=== PATIENT | female | born 1950 | race Caucasian/White ===

== ENCOUNTER 2018-06-06 21:27 | Inpatient (IN) | payer OTHER ==
[2018-06-06 22:51] LABS: ALT/SGPT 72 U/L (12-78); AST/SGOT 51 U/L (15-37); Albumin 4.2 g/dL (3.4-5.0); Alkaline Phosphatase 78 U/L (45-117); BUN Blood Urea Nitrogen 20 mg/dL (7-18); Bicarbonate 27 mmol/L (21-32); Bilirubin Direct 0.1 mg/dL (0-0.2); Bilirubin Total 0.7 mg/dL (0.2-1.0); CKMB Creatine Kinase MB < 1.0 ng/mL (0.3-3.6); Creatine Phosphokinase 78 U/L (26-192); Glucose Level 138 mg/dL (74-106); Lipase 170 U/L (73-393); NT PRO-BNP 28 pg/mL (<125); Potassium 3.5 mmol/L (3.5-5.1); Protein, Total 7.2 g/dL (6.4-8.2); Sodium Level 141 mmol/L (136-145)
[2018-06-06] MEDS ORDERED: METRONIDAZOLE 500mg IVPB 500 MG/100 ML BAG IV ONE (22:53)
[2018-06-06] MEDS ORDERED: CIPROFLOXACIN 400mg IV 400 MG/200 ML BAG IV ONE (22:53)
[2018-06-06] MEDS ORDERED: NA CHLORIDE 0.9% 1,000 ML ONE (22:53)
[2018-06-06 22:54] LABS: Absolute Lymphocytes (CBC) 3.1 K/uL (0.7-4.9); Absolute Monocytes 0.8 K/uL (0.1-1.3); Absolute Neutrophil 8.8 K/uL (1.8-8.0); Basophils % 0.8 % (0-1.3); Eosinophils % 1.1 % (0-4.4); Hematocrit 39.7 % (36.0-45.0); Lymphocytes % 24.3 % (15.3-44.8); MCH 30.8 pg (27.0-35.0); MCV 89.6 fL (80-100); MPV 10.2 fL (7.6-11.3); RBC Red Blood Cell Count 4.43 M/uL (3.86-4.86)
--- NOTE | 2018-06-06 23:09 | EDPHYS ---
Physician Documentation [facility] Name: Joie Genao Age: 67 yrs Sex: Female : 1950 Arrival Date: 06/06/2018 Time: 21:28 Bed 18 Private MD: Clare Rivas ED Physician Drake Scott HPI: 06/06 23:02 This 67 yrs old Female presents to ER via EMS with complaints of Rectal sophy Bleeding. 23:02 The patient presents to the emergency department with bleeding from the rectum/anus, sophy that is mild. Onset: The symptoms/episode began/occurred today. Context: the patient has no known special context relating to the rectal area complaint(s). Modifying factors: The symptoms are alleviated by. Associate signs and symptoms: The patient has no apparent associated signs or symptoms. The patient has not experienced similar symptoms in the past. Historical: - Allergies: 21:34 Iodine; fc 21:34 Codeine; fc - Home Meds: 21:34 amlodipine 10 mg tab 1 tab once daily [Active]; hydrochlorothiazide 25 mg Oral tab 1 fc tab once daily [Active]; valacyclovir 500 mg Oral tab as needed [Active]; simvastatin 40 mg Oral tab 1 tab once daily [Active]; omeprazole 20 mg Oral cpDR 2 caps once daily [Active]; multivitamin oral tab daily [Active]; vitamin E 200 unit Oral cap daily [Active]; Vitamin C 500 mg Oral tab daily [Active]; calcium carbonate 500 mg calcium (1,250 mg) Oral chew daily [Active]; aspirin 81 mg Oral TbEC 1 tab once daily [Active]; folic acid 400 mcg Oral tab 1 tab once daily [Active]; niacin 250 mg Oral cpER daily [Active]; - PMHx: 21:34 Hypertension; High Cholesterol; fc - PSHx: 21:34 Cholecystectomy; Hysterectomy; Knee surgery; Lumpectomy; fc - Immunization history:: Last tetanus immunization: unknown. - Social history:: Smoking status: Patient/guardian denies using tobacco. - Ebola Screening: : Patient negative for fever greater than or equal to 101.5 degrees Fahrenheit, and additional compatible Ebola Virus Disease symptoms Patient negative for fever greater than or equal to 101.5 degrees Fahrenheit, and additional compatible Ebola Virus Disease symptoms Patient denies exposure to infectious person Patient denies travel to an Ebola-affected area in the 21 days before illness onset. - Family history:: not pertinent. ROS: 23:02 Constitutional: Negative for fever, chills, and weight loss, Eyes: Negative for injury, sophy pain, redness, and discharge, ENT: Negative for injury, pain, and discharge, Neck: Negative for injury, pain, and swelling, Cardiovascular: Negative for chest pain, palpitations, and edema, Respiratory: Negative for shortness of breath, cough, wheezing, and pleuritic chest pain, Back: Negative for injury and pain, : Negative for injury, bleeding, discharge, and swelling, MS/Extremity: Negative for injury and deformity, Skin: Negative for injury, rash, and discoloration, Neuro: Negative for headache, weakness, numbness, tingling, and seizure, Psych: Negative for depression, anxiety, suicide ideation, homicidal ideation, and hallucinations, Allergy/Immunology: Negative for hives, rash, and allergies, Endocrine: Negative for neck swelling, polydipsia, polyuria, polyphagia, and marked weight changes, Hematologic/Lymphatic: Negative for swollen nodes, abnormal bleeding, and unusual bruising. 23:02 Abdomen/GI: Positive for rectal bleeding. Exam: 23:02 Constitutional: This is a well developed, well nourished patient who is awake, alert, sophy and in no acute distress. Head/Face: Normocephalic, atraumatic. Eyes: Pupils equal round and reactive to light, extra-ocular motions intact. Lids and lashes normal. Conjunctiva and sclera are non-icteric and not injected. Cornea within normal limits. Periorbital areas with no swelling, redness, or edema. ENT: Nares patent. No nasal discharge, no septal abnormalities noted. Tympanic membranes are normal and external auditory canals are clear. Oropharynx with no redness, swelling, or masses, exudates, or evidence of obstruction, uvula midline. Mucous membranes moist. Neck: Trachea midline, no thyromegaly or masses palpated, and no cervical lymphadenopathy. Supple, full range of motion without nuchal rigidity, or vertebral point tenderness. No Meningismus. Chest/axilla: Normal chest wall appearance and motion. Nontender with no deformity. No lesions are appreciated. Cardiovascular: Regular rate and rhythm with a normal S1 and S2. No gallops, murmurs, or rubs. Normal PMI, no JVD. No pulse deficits. Respiratory: Lungs have equal breath sounds bilaterally, clear to auscultation and percussion. No rales, rhonchi or wheezes noted. No increased work of breathing, no retractions or nasal flaring. Back: No spinal tenderness. No costovertebral tenderness. Full range of motion. Female : Normal external genitalia. Skin: Warm, dry with normal turgor. Normal color with no rashes, no lesions, and no evidence of cellulitis. MS/ Extremity: Pulses equal, no cyanosis. Neurovascular intact. Full, normal range of motion. Neuro: Awake and alert, GCS 15, oriented to person, place, time, and situation. Cranial nerves II-XII grossly intact. Motor strength 5/5 in all extremities. Sensory grossly intact. Cerebellar exam normal. Normal gait. Psych: Awake, alert, with orientation to person, place and time. Behavior, mood, and affect are within normal limits. 23:02 Abdomen/GI: Inspection: abdomen appears normal, Bowel sounds: normal, Palpation: abdomen is soft and non-tender, Rectal exam: gross blood, clots. Liver: no appreciated palpable abnormalities, Hernia: not appreciated. Vital Signs: 21:35 BP 121 / 74; Pulse 79; Resp 18; Temp 98.5(O); Pulse Ox 100% on R/A; Weight 76.2 kg (R); Height 5 ft. 3 in. (160.02 cm) (R); Pain 0/10; 23:11 BP 114 / 74; Pulse 85; Resp 17 S; Pulse Ox 97% on R/A; jd3 06/07 00:30 BP 117 / 50; Pulse 86; Resp 16 S; Pulse Ox 98% on R/A; jd3 06/06 21:35 Body Mass Index 29.76 (76.20 kg, 160.02 cm) fc MDM: 06/06 21:49 Patient medically screened. [facility] 23:02 Data reviewed: vital signs, nurses notes, lab test result(s), EKG, radiologic studies, [facility] CT scan, plain films. 06/06 21:51 Order name: Basic Metabolic Panel; Complete Time: 23:02 [facility] 06/06 21:51 Order name: CBC with Diff; Complete Time: 23:02 [facility] 06/06 21:51 Order name: Ckmb; Complete Time: 23:02 [facility] 06/06 21:51 Order name: CPK; Complete Time: 23:02 [facility] 06/06 21:51 Order name: LFT's; Complete Time: 23:02 [facility] 06/06 21:51 Order name: Magnesium; Complete Time: 23:02 [facility] 06/06 21:51 Order name: NT PRO-BNP; Complete Time: 23:02 [facility] 06/06 21:51 Order name: PT-INR; Complete Time: 23:54 [facility] 06/06 21:51 Order name: Ptt, Activated; Complete Time: 23:54 [facility] 06/06 21:51 Order name: Troponin (emerg Dept Use Only); Complete Time: 23:02 [facility] 06/06 21:51 Order name: Lipase; Complete Time: 23:02 [facility] 06/06 21:51 Order name: Type And Screen; Complete Time: 23:54 [facility] 06/06 21:51 Order name: Urine Culture [facility] 06/06 23:43 Order name: ABO/RH no charge; Complete Time: 23:54 EDMS 06/06 21:51 Order name: XRAY Chest (1 view) [facility] 06/06 21:51 Order name: EKG; Complete Time: 21:52 [facility] 06/06 21:51 Order name: Cardiac monitoring; Complete Time: 22:24 [facility] 06/06 21:51 Order name: EKG - Nurse/Tech; Complete Time: 22:24 [facility] 06/06 21:51 Order name: IV Saline Lock; Complete Time: 22:42 [facility] 06/06 21:51 Order name: Labs collected and sent; Complete Time: 22:42 [facility] 06/06 21:51 Order name: O2 Per Protocol; Complete Time: 21:52 [facility] 06/06 21:51 Order name: O2 Sat Monitoring; Complete Time: 21:52 [facility] 06/06 21:51 Order name: CT Abd/Pelvis - Without Cont [facility] 06/06 23:12 Order name: CONS Physician Consult EDMS Administered Medications: 23:10 Drug: NS 0.9% 500 ml Route: IV; Rate: bolus; Site: left forearm; jd3 06/07 00:29 Follow up: Response: No adverse reaction; IV Status: Completed infusion; IV Intake: jd3 500ml 06/06 23:10 Drug: Flagyl 500 mg Volume: 100 ml; Route: IVPB; Rate: 200 ml/hr; Infused Over: 30 jd3 mins; Site: left forearm; 06/07 00:29 Follow up: Response: No adverse reaction; IV Status: Completed infusion jd3 00:29 Drug: NS 0.9% 1000 ml Route: IV; Rate: 125 ml/hr; Site: left forearm; jd3 00:30 Follow up: IV Status: Infusion continued upon admission jd3 00:29 Drug: Cipro 400 mg Volume: 200 ml; Route: IVPB; Infused Over: 60 mins; Site: left jd3 antecubital; 00:30 Follow up: IV Status: Infusion continued upon admission jd3 Disposition: 06/06/18 23:09 Hospitalization ordered by Emanuel Phelps for Observation. Preliminary diagnosis is Gastrointestinal hemorrhage, unspecified - lower, sp biopsy. - Bed requested for Telemetry/MedSurg (observation). - Status is Observation. jd3 - Condition is Stable. - Problem is new. - Symptoms are unchanged. UTI on Admission? No Signatures: Dispatcher [employer] EDMD Drake Scott MD MD cha Chretien, Felicia, RN KIAN Janice Marsh RN RN Koko Vargas RN RN jd3 Corrections: (The following items were deleted from the chart) 06/06 23:22 23:09 Hospitalization Ordered by Emanuel Phelps MD for Observation. Preliminary cg diagnosis is Gastrointestinal hemorrhage, unspecified - lower, sp biopsy. Bed requested for Telemetry/MedSurg (observation). Status is Observation. Condition is Stable. Problem is new. Symptoms are unchanged. UTI on Admission? No. sophy 06/07 00:50 06/06 23:22 06/06/2018 23:09 Hospitalization Ordered by Emanuel Phelps MD for jd3 Observation. Preliminary diagnosis is Gastrointestinal hemorrhage, unspecified - lower, sp biopsy. Bed requested for Telemetry/MedSurg (observation). Status is Observation. Condition is Stable. Problem is new. Symptoms are unchanged. UTI on Admission? No. cg
--- NOTE | 2018-06-06 23:09 | ER ---
Nurse's Notes [facility] Name: Joie Genao Age: 67 yrs Sex: Female : 1950 Arrival Date: 06/06/2018 Time: 21:28 Bed 18 Private MD: Clare Rivas Diagnosis: Gastrointestinal hemorrhage, unspecified-lower, sp biopsy Presentation: 06/06 21:29 Presenting complaint: Patient states: that she had colonoscopy with 6 polyps removed fc last Thursday by Dr Cortes. Today she has had 4 BM's today with dark red blood and clots. EMS bp 129/78, heart rate of 86. Transition of care: patient was not received from another setting of care. Onset of symptoms was June 06, 2018. Risk Assessment: Do you want to hurt yourself or someone else? Patient reports no desire to harm self or others. Initial Sepsis Screen: Does the patient meet any 2 criteria? No. Patient's initial sepsis screen is negative. Does the patient have a suspected source of infection? No. Patient's initial sepsis screen is negative. Care prior to arrival: None. 21:29 Method Of Arrival: EMS: [facility] 21:29 Acuity: MARK 3 fc Historical: - Allergies: 21:34 Iodine; fc 21:34 Codeine; fc - Home Meds: 21:34 amlodipine 10 mg tab 1 tab once daily [Active]; hydrochlorothiazide 25 mg Oral tab 1 fc tab once daily [Active]; valacyclovir 500 mg Oral tab as needed [Active]; simvastatin 40 mg Oral tab 1 tab once daily [Active]; omeprazole 20 mg Oral cpDR 2 caps once daily [Active]; multivitamin oral tab daily [Active]; vitamin E 200 unit Oral cap daily [Active]; Vitamin C 500 mg Oral tab daily [Active]; calcium carbonate 500 mg calcium (1,250 mg) Oral chew daily [Active]; aspirin 81 mg Oral TbEC 1 tab once daily [Active]; folic acid 400 mcg Oral tab 1 tab once daily [Active]; niacin 250 mg Oral cpER daily [Active]; - PMHx: 21:34 Hypertension; High Cholesterol; fc - PSHx: 21:34 Cholecystectomy; Hysterectomy; Knee surgery; Lumpectomy; fc - Immunization history:: Last tetanus immunization: unknown. - Social history:: Smoking status: Patient/guardian denies using tobacco. - Ebola Screening: : Patient negative for fever greater than or equal to 101.5 degrees Fahrenheit, and additional compatible Ebola Virus Disease symptoms Patient negative for fever greater than or equal to 101.5 degrees Fahrenheit, and additional compatible Ebola Virus Disease symptoms Patient denies exposure to infectious person Patient denies travel to an Ebola-affected area in the 21 days before illness onset. - Family history:: not pertinent. Screenin:31 Abuse screen: Denies threats or abuse. Nutritional screening: No deficits noted. jd3 Tuberculosis screening: No symptoms or risk factors identified. Fall Risk Ambulatory Aid- None/Bed Rest/Nurse Assist (0 pts). Gait- Normal/Bed Rest/Wheelchair (0 pts) Mental Status- Oriented to own ability (0 pts). Total Bullock Fall Scale indicates No Risk (0-24 pts). Assessment: 21:28 General: Appears uncomfortable, Behavior is calm, cooperative, appropriate for age. jd3 Pain: Denies pain. Neuro: Level of Consciousness is awake, alert, obeys commands, Oriented to person, place, time, situation, Reports dizziness. Cardiovascular: Heart tones S1 S2 present Capillary refill < 3 seconds Patient's skin is warm and dry. Respiratory: Airway is patent Respiratory effort is even, unlabored, Respiratory pattern is regular, symmetrical, Breath sounds are clear bilaterally. GI: Abdomen is round Bowel sounds present X 4 quads. Abd is soft and non tender X 4 quads. Reports bloody stool. : No signs and/or symptoms were reported regarding the genitourinary system. EENT: No signs and/or symptoms were reported regarding the EENT system. Derm: Skin is intact, Skin is dry, Skin is normal, Skin temperature is warm. Musculoskeletal: Circulation, motion, and sensation intact. Range of motion: intact in all extremities. 23:12 Reassessment: Patient appears in no apparent distress at this time. Patient and/or jd3 family updated on plan of care and expected duration. Pain level reassessed. Patient is alert, oriented x 3, equal unlabored respirations, skin warm/dry/pink. 06/07 00:43 Reassessment: Patient appears in no apparent distress at this time. Patient and/or jd3 family updated on plan of care and expected duration. Pain level reassessed. Patient is alert, oriented x 3, equal unlabored respirations, skin warm/dry/pink. Vital Signs: 06/06 21:35 BP 121 / 74; Pulse 79; Resp 18; Temp 98.5(O); Pulse Ox 100% on R/A; Weight 76.2 kg (R); fc Height 5 ft. 3 in. (160.02 cm) (R); Pain 0/10; 23:11 BP 114 / 74; Pulse 85; Resp 17 S; Pulse Ox 97% on R/A; jd3 06/07 00:30 BP 117 / 50; Pulse 86; Resp 16 S; Pulse Ox 98% on R/A; jd3 06/06 21:35 Body Mass Index 29.76 (76.20 kg, 160.02 cm) ED Course: 06/06 21:28 Patient arrived in ED. jd3 21:28 Koko Vargas, KIAN is Primary Nurse. jd3 21:29 Clare Rivas is Private Physician. 21:31 Triage completed. 21:31 Patient has correct armband on for positive identification. Bed in low position. Call jd3 light in reach. Side rails up X2. Adult w/ patient. 21:32 Arm band placed on. jd3 21:49 Drake Scott MD is Attending Physician. sophy 22:25 XRAY Chest (1 view) In Process Unspecified. EDMS 22:55 Inserted saline lock: 22 gauge in left forearm, using aseptic technique. Blood jd3 collected. [facility]. 23:08 Emanuel Phelps MD is Hospitalizing Provider. sophy 23:[address] via stretcher. kw1 23:38 CT completed. Patient tolerated procedure well. Patient moved back from CT. kw1 06/07 00:31 No provider procedures requiring assistance completed. Patient admitted, IV remains in jd3 place. Administered Medications: 06/06 23:10 Drug: NS 0.9% 500 ml Route: IV; Rate: bolus; Site: left forearm; jd3 06/07 00:29 Follow up: Response: No adverse reaction; IV Status: Completed infusion; IV Intake: jd3 500ml 06/06 23:10 Drug: Flagyl 500 mg Volume: 100 ml; Route: IVPB; Rate: 200 ml/hr; Infused Over: 30 jd3 mins; Site: left forearm; 06/07 00:29 Follow up: Response: No adverse reaction; IV Status: Completed infusion jd3 00:29 Drug: NS 0.9% 1000 ml Route: IV; Rate: 125 ml/hr; Site: left forearm; jd3 00:30 Follow up: IV Status: Infusion continued upon admission jd3 00:29 Drug: Cipro 400 mg Volume: 200 ml; Route: IVPB; Infused Over: 60 mins; Site: left jd3 antecubital; 00:30 Follow up: IV Status: Infusion continued upon admission jd3 Intake: 00:29 IV: 500ml; Total: 500ml. jd3 Outcome: 06/06 23:09 Decision to Hospitalize by Provider. sophy 06/07 00:42 Admitted to Med/surg accompanied by tech, via stretcher, room 223, with chart, Report jd3 called to Pauly LANGSTON Condition: stable Instructed on the need for admit, Demonstrated understanding of instructions. 00:50 Patient left the ED. jd3 Signatures: Dispatcher [employer] EDDrake Ramirez MD MD cha Chretien, Felicia, RN RN Koko To RN RN jd3 Wilhelm, Kimberly kw1 Corrections: (The following items were deleted from the chart) 00:32 07 23:00 Inserted saline lock: 22 gauge in left forearm, using aseptic technique. jd3 Blood collected. jd3 06/07 00:38 07 22:55 Inserted saline lock: 22 gauge in left forearm, using aseptic technique. jd3 Blood collected. jd3
[2018-06-06] MEDS ORDERED: ACETAMINOPHEN 500 MG TAB PO PRN (23:14)
[2018-06-06] MEDS ORDERED: MORPHINE 2 MG/ML SYR IV PRN (23:14)
[2018-06-06 23:15] LABS: Protime INR 1.12
[2018-06-06] MEDS ORDERED: NA CHLORIDE 0.9% 250 ML IV SCH (23:45)
[2018-06-06] MEDS: NA CHLORIDE 0.9% 1,000 ML IV SCH (23:45)
[2018-06-07] MEDS: HYDROCORTISONE 2.5% RECT CR PR SCH ×3 (03:10→21:00)
[2018-06-07 04:31] LABS: Absolute Monocytes 0.4 K/uL (0.1-1.3); Absolute Neutrophil 6.2 K/uL (1.8-8.0); Eosinophils % 0.5 % (0-4.4); Hematocrit 31.7 % (36.0-45.0); Lymphocytes % 22.7 % (15.3-44.8); MCH 31.7 pg (27.0-35.0); MCV 89.1 fL (80-100); MPV 10.6 fL (7.6-11.3); Monocytes % 5.1 % (3.3-12.3); RBC Red Blood Cell Count 3.56 M/uL (3.86-4.86)
[2018-06-07] MEDS: NA CHLORIDE 0.9% 1,000 ML IV SCH ×3 (04:54→15:50)
--- NOTE | 2018-06-07 07:10 | P.HP ---
Certification for Inpatient Patient admitted to: Observation With expected LOS: <2 Midnights Patient will require the following post-hospital care: None Practitioner: I am a practitioner with admitting privileges, knowledge of patient current condition, hospital course, and medical plan of care. Services: Services provided to patient in accordance with Admission requirements found in Title 42 Section 412.3 of the Code of Federal Regulations Patient History Date of Service: 06/06/18 Reason for admission: Lower GI bleeding History of Present Illness: Patient is a 67-year-old female came to the hospital with a lower GI bleeding. Patient has had bright red blood per rectum over the last 24 hrs. Patient had a colonoscopy performed on Thursday. She had 6 polyps removed. She did well on Thursday and Thursday; however, she started developing bright red blood per rectum on Thursday. She had been on aspirin but stopped it on Thursday. She has not restarted the aspirin. Clinically, she has been lightheaded however her heart rate and blood pressure stable. Patient came into the hospital for further evaluation. Will Consult GI for further evaluation as well Allergies codeine Adverse Reaction (Mild, Verified 06/07/18 01:34) Nausea/Vomiting iodine Adverse Reaction (Mild, Verified 06/07/18 01:34) Hives/Rash Home Medications: Amlodipine [Norvasc] 1 tab PO DAILY 06/07/18 Antiarthritic Combination No.2 [Glucosamine-Chondroitin] 1,500 mg PO DAILY 06/07 Ascorbate Calcium [Vitamin C] 500 mg PO DAILY 06/07/18 Aspirin 81 mg PO DAILY 06/07/18 Calcium Carbonate [Calcium] 1,200 mg PO DAILY MDD seecom 06/07/18 Folic Acid 0.4 mg PO DAILY 06/07/18 Multivitamin/Iron/Folic Acid [Centrum Adults Tablet] 1 tab PO DAILY 06/07/18 Niacin 250 mg PO DAILY 06/07/18 Omeprazole 2 tab PO DAILY 06/07/18 Psyllium Husk/Aspartame [Metamucil Fiber Singles Packet] 3.4 gm PO DAILY Simvastatin 40 mg PO DAILY 06/07/18 Valacyclovir HCl [Valtrex] 500 mg PO DAILY PRN 06/07/18 Vitamin E 200 unit PO DAILY 06/07/18 hydroCHLOROthiazide [Hydrochlorothiazide] 25 mg PO DAILY 06/07/18 - Past Medical/Surgical History Has patient received pneumonia vaccine in the past: Yes Diabetic: No -: Shingles -: Hypertensive -: High cholesterol -: Colonoscopy with 6 polyps removed 06/04/18 -: Cholecystectomy -: Complete Hysterectomy -: Arthroscopic right knee -: Lumpectomy right breast (benign) -: 1953-Tonsillectomy - Family History Father Medical History: Heart disease Notes: heart attack Mother Medical History: Lung disease, Other (see notes) Notes: COPD; Emphysema - Social History Smoking Status: Never smoker Alcohol use: Yes CD- Drugs: No Caffeine use: Yes Place of Residence: Home Review of Systems 10-point ROS is otherwise unremarkable Physical Examination - Vital Signs Temperature: 97.9 F Blood Pressure: 111/57 Pulse: 82 Respirations: 20 Pulse Ox (%): 96 - Physical Exam General: Alert, In no apparent distress, Oriented x3 HEENT: Atraumatic, PERRLA, Mucous membr. moist/pink, EOMI, Sclerae nonicteric Neck: Supple, 2+ carotid pulse no bruit, No LAD, Without JVD or thyroid abnormality Respiratory: Clear to auscultation bilaterally, Normal air movement Cardiovascular: Regular rate/rhythm, Normal S1 S2, No murmurs Gastrointestinal: Normal bowel sounds, Soft and benign, Non-distended, No tenderness Musculoskeletal: No clubbing, No swelling, No tenderness Integumentary: No rashes Neurological: Normal gait, Normal speech, Normal strength at 5/5 x4 extr, Normal tone, Sensation intact, Cranial nerves 3-12 intact, Normal affect Lymphatics: No axilla or inguinal lymphadenopathy - Studies Laboratory Data (last 24 hrs) 06/06/18 22:50: PT 13.2 H, INR 1.12, APTT 27.4 06/06/18 22:33: WBC 12.9 H, Hgb 13.6, Hct 39.7, Plt Count 262 06/06/18 22:15: Sodium 141, Potassium 3.5, BUN 20 H, Creatinine 0.80, Glucose 138 H, Magnesium 2.0, Total Bilirubin 0.7, AST 51 H, ALT 72, Alkaline Phosphatase 78, Lipase 170 Assessment & Plan - Problems (Diagnosis) (1) Status post colonoscopy with polypectomy Current Visit: Yes Status: Acute (2) Diverticulosis Onset Date: 06/07/18 Current Visit: Yes Status: Acute (3) Lower GI bleed Onset Date: 06/07/18 Current Visit: Yes Status: Acute (4) HTN (hypertension) Current Visit: Yes Status: Acute - Plan Plan: 1. Continue with IV hydration and PPI BID 2. Serial H&H, and we will monitor LFTs and lipase along with electrolytes. 3. Continue with pain control 4. NPO 5. GI consultation 6. DVT prophylaxis Discharge Plan: Home Plan to discharge in: 48 Hours - Advance Directives Does patient have a Living Will: Yes Does patient have a Durable POA for Healthcare: Yes - Code Status/Comfort Care Code Status Assessed: Yes Code Status: Full Code Critical Care: No Time Spent Managing PTS Care (In Minutes): 50
--- NOTE | 2018-06-07 08:09 | RAD REPORT ---
EXAM DESCRIPTION: CT - Abdomen Pelvis Wo Contrast - 06/07/2018 2:52 am CLINICAL HISTORY: Abdominal pain recent colonoscopy with polyp removal. Hematochezia. COMPARISON: 2016 TECHNIQUE: Computed axial tomography of the abdomen and pelvis was obtained. IV was not requested. O ral contrast was given. Coronal reconstructions performed. A preliminary report was generated by [facility] and reviewed prior to this dictation All CT scans are performed using dose optimization technique as appropriate and may include automated exposure control or mA/KV adjustment according to patient size. FINDINGS: The evaluation of solid organs and vessels is limited secondary to the lack of contrast a dministration. Several small low-density hepatic lesions are nonspecific without IV contrast but probably spleen, pa ncreas, adrenals and left kidney are unremarkable. A 39 millimeter cystic mass extends off of the rig ht kidney which has enlarged from the prior exam in which it measured 32 millimeters. Prior ultrasoun d demonstrates that it likely represents a cyst. A small umbilical hernia contains fat Diverticula stem from the colon without evidence of diverticulitis. The uterus and gallbladder have b een removed. IMPRESSION: Diverticulosis without diverticulitis No acute abnormality is displayed
--- NOTE | 2018-06-07 08:10 | RAD REPORT ---
EXAM DESCRIPTION: Yohanat Single View06/06/2018 10:24 pm CLINICAL HISTORY: Cough COMPARISON: 2012 FINDINGS: The lungs appear clear of acute infiltrate. The heart is normal size. The aorta is tortuous/ectatic IMPRESSION: No acute abnormalities displayed
[2018-06-07 08:15] LABS: Hematocrit 30.4 % (36.0-45.0)
--- NOTE | 2018-06-07 08:17 | P.PN ---
Subjective Date of Service: 06/07/18 Primary Care Provider: Out of Town Physician, GI-Dr. Cortes Chief Complaint: Lower GI bleeding Subjective: Improving (Patient without any abdominal pain. No nausea vomiting.) Physical Examination - Vital Signs Temperature: 97.9 F Blood Pressure: 111/57 Pulse: 82 Respirations: 20 Pulse Ox (%): 96 - Physical Exam General: Alert, In no apparent distress, Oriented x3, Cooperative HEENT: Atraumatic Neck: Supple Respiratory: Clear to auscultation bilaterally, Normal air movement Cardiovascular: Normal pulses, Regular rate/rhythm Gastrointestinal: Normal bowel sounds, Soft and benign, Non-distended, No tenderness, No masses, No rebound, No guarding Musculoskeletal: No erythema, No tenderness, No warmth Integumentary: No tenderness/swelling, No erythema, No warmth, No cyanosis Neurological: Normal speech, Normal strength at 5/5 x4 extr, Normal tone, Normal affect - Studies Laboratory Data (last 24 hrs) 06/06/18 22:50: PT 13.2 H, INR 1.12, APTT 27.4 06/06/18 22:33: WBC 12.9 H, Hgb 13.6, Hct 39.7, Plt Count 262 06/06/18 22:15: Sodium 141, Potassium 3.5, BUN 20 H, Creatinine 0.80, Glucose 138 H, Magnesium 2.0, Total Bilirubin 0.7, AST 51 H, ALT 72, Alkaline Phosphatase 78, Lipase 170 Medications List Reviewed: Yes Assessment & Plan - Problems (Diagnosis) (1) Hyperlipidemia Current Visit: Yes Status: Chronic Plan: Will continue home medication Qualifiers: Hyperlipidemia type: unspecified Qualified Code(s): E78.5 - Hyperlipidemia , unspecified (2) Status post colonoscopy with polypectomy Current Visit: Yes Status: Acute Plan: Patient had several polyps removed on Thursday. Will monitor hemoglobin closely. Will advance diet. No significant abdominal pain noted. Will discuss with GI. Suspect patient can be discharged later and follow up as an outpatient. (3) HTN (hypertension) Current Visit: Yes Status: Chronic Plan: Continue home medication. Qualifiers: Hypertension type: essential hypertension Qualified Code(s): I10 - Essential (primary) hypertension (4) Lower GI bleed Onset Date: 06/07/18 Current Visit: Yes Status: Acute Plan: Secondary to recent polypectomy from colonoscopy. Will continue to monitor hemoglobin closely. No abdominal pain noted. Overall improved. Will discuss with GI about the possibility of discharge later today. Discharge Plan: Home Plan to discharge in: 24 Hours - Code Status/Comfort Care Code Status Assessed: Yes (Patient full code.) Time Spent Managing Pts Care (In Minutes): 55
[2018-06-07] MEDS ORDERED: PANTOPRAZOLE 40 MG INJ IVP SCH (09:00)
--- NOTE | 2018-06-07 09:10 | EKG ---
Test Date: 2018-06-06 Test Time: 22:14:56 Dispatcher Chief Oil: HE MEASUREMENT RESULTS: Intervals: Rate: 84 FL: 166 QRSD: 78 QT: 402 QTc: 475 [place]: P: 39 FL: 166 QRS: 14 T: 34 INTERPRETIVE STATEMENTS: Normal sinus rhythm Prolonged QT Abnormal ECG Compared to ECG 11/15/2013 09:57:44 Prolonged QT interval now present Electronically Signed On 06-07-18 09:10:09 CDT by Yousif Waite
--- NOTE | 2018-06-07 11:58 | ECHO ---
HEIGHT: 5 ft 3 in WEIGHT: 168 lb 8 oz DATE OF STUDY: 06/07/[address]: Emanuel Phelps MD 2-DIMENSIONAL: YES M.MODE: YES DOPPLER: YES COLOR FLOW: YES TDS: PORTABLE: DEFINITY: BUBBLE STUDY: DIAGNOSIS: CHEST PAIN CARDIAC HISTORY: CATHERIZATION: NO SURGERY: NO PROSTHETIC VALVE: NO PACEMAKER: NO MEASUREMENTS (cm) DIASTOLIC (NORMALS) SYSTOLIC (NORMALS) IVSd 1.0 (0.6-1.2) LA Diam 3.7 (1.9-4.0) LVEF 57% LVIDd 4.7 (3.5-5.7) LVIDs 3.3 (2.0-3.5) %FS 30% LVPWd 1.0 (0.6-1.2) Ao Diam 2.9 (2.0-3.7) 2 DIMENSIONAL ASSESSMENT: RIGHT ATRIUM: NORMAL LEFT ATRIUM: NORMAL RIGHT VENTRICLE: NORMAL LEFT VENTRICLE: NORMAL TRICUSPID VALVE: NORMAL MITRAL VALVE: NORMAL PULMONIC VALVE: NORMAL AORTIC VALVE: NORMAL PERICARDIAL EFFUSION: NONE AORTIC ROOT: NORMAL LEFT VENTRICULAR WALL MOTION: NORMAL DOPPLER/COLOR FLOW: NORMAL COMMENTS: NORMAL TWO DIMENSIONAL ECHOCARDIOGRAM WITH DOPPLER TECHNOLOGIST: EMY AZUL
--- NOTE | 2018-06-07 14:10 | CON ---
Date of Consultation: 06/07/2018 A 67-year-old female, 223. Dr. May. Reason For Consultation: Lower GI bleeding. History Of Present Illness: Ms. Genao is a 67-year-old female, who underwent colonoscopy on Thursday. Six polyps were remove, biopsies still pending. However, from Thursday, she started developing blee ding. Bleeding is bright red blood, followed by somewhat dark stool. Denies any fever, chills, any abdominal pain; however, she is feeling weak, and also occasionally dizzy. As a result, she got into the hospital. Since morning, she had 2 bowel movements where bowel movement was mixed with blood. Again denies any fever, chills. No shortness of breath. Past Medical History: Hypertension, diabetes. She takes baby aspirin 81 mg a day. Past Surgical History: As related to above. Family History: Denies any gastrointestinal malignancy in the family. Social History: No alcohol, tobacco. Psychiatric History: None. Allergies: REVIEWED IN THE CHART. Medications: Reviewed in the chart. Review of Systems: General: No weight loss, weight gain. No fever or chills. No abdominal pain. Hepatology: denies any history of jaundice, hepatitis, any other liver afflictions in the past. GI: As elaborated above. Respiratory: No shortness of breath, cough, or expectoration. Cardiac: Positive palpitation. No orthopnea or dyspnea. No chest pain. Neuropsychiatric: As elaborated above. Neuroendocrine: None. Musculoskeletal: Just generalized weakness. No arthralgia or myalgia. Genitourinary: None. Physical Examination: General: Elderly female. At this time, no other acute distress noted. Hemodynamic and respiratory p rofile within normal range. She does not appear to be pale. HEENT: Atraumatic, normocephalic. No pallor, no icterus. Oropharynx is clear. Neck: Supple. No lymphadenopathy. Trachea central in position. Chest: Clear to auscultation and percussion. Cardiovascular: Normal S1, S2. No S3, no S4. Abdomen: Soft, nontender, nondistended. Excellent bowel sounds. No hepatomegaly. No splenomegaly. No ascites. No succussion splash. No rebound tenderness. Neurologic: Alert and oriented x3. Intact memory, mentation, and judgment. Can move all her extrem ities without any other problem. Dermatologic: Normal. Extremities: Upper and lower extremities are normal, symmetrical. No symmetrical wasting noted. Investigation: CT scan is negative other than diverticulosis. Hemoglobin and hematocrit , whic h has gone down to 10.8 and 30 respectively. Impression, Plan, And Recommendation: 1.Ms. Genao is a 67-year-old female, with hematochezia, most likely a post polypectomy bleeding from 1 of the 6 polyps. So far, she has not dropped her H and H, on the other hand, she is also asymptom atic. Therefore, continued hospital admission will be recommended. Reflection of her hemoglobin and hematocrit is likely due to not really blood volume, however, due to hemoconcentration. I expect it to go down. If she needs a transfusion, transfusion has to be given. Serial hemoglobin, hematocrit to be monitored. IV fluid volume almond paste mixer and IV antibiotic may also help. 2.I will also change her diet to clear liquid/. I have had a long discussion with the patient. We will watch her for a reasonable amount of time as long as she is asymptomatic, however, if she becomes symptomatic or bleeding does not stop, there is a possibility of repeat colonoscopy and/or surgery. I have had a long discussion with her. Her risk of bleeding is higher also due to use of aspirin. All her questions have been addressed to her sati sfaction. She has good understanding. CARY/LISHA Voice ID: [id number] Report ID: [id number]
[2018-06-07] MEDS: PANTOPRAZOLE INJ 80 MG in NA CHLORIDE 0.9% 250 ML IV SCH (15:42)
[2018-06-07 16:02] LABS: Hematocrit 26.5 % (36.0-45.0)
[2018-06-07 20:13] LABS: Hematocrit 26.1 % (36.0-45.0)
[2018-06-07 20:50] LABS: Urine Appearance CLEAR; Urine Bilirubin NEGATIVE (NEG); Urine Blood NEGATIVE (NEG); Urine Color YELLOW; Urine Glucose NEGATIVE (NEG); Urine Microscopic Reflex ORDER UMIC; Urine Protein NEGATIVE (NEG); Urine Specific Gravity 1.025 (1.005-1.030); Urine Urobilinogen 0.2 mg/dL (0.2-1.0)
[2018-06-07 20:56] LABS: Urine Bacteria <20 /HPF (<20); Urine Culture Reflex Order NOT NEEDED; Urine RBC <5 /HPF (NONE SEEN)
[2018-06-07 22:53] LABS: Hematocrit 23.5 % (36.0-45.0)
[2018-06-08] MEDS: NA CHLORIDE 0.9% 1,000 ML IV SCH (01:25)
[2018-06-08] MEDS: PANTOPRAZOLE INJ 80 MG in NA CHLORIDE 0.9% 250 ML IV SCH ×3 (01:25→22:00)
[2018-06-08 05:44] LABS: Absolute Lymphocytes (CBC) 3.1 K/uL (0.7-4.9); Absolute Monocytes 0.6 K/uL (0.1-1.3); Absolute Neutrophil 3.5 K/uL (1.8-8.0); Basophils % 0.8 % (0-1.3); Eosinophils % 2.1 % (0-4.4); Hematocrit 21.2 % (36.0-45.0); Lymphocytes % 41.2 % (15.3-44.8); MCH 31.8 pg (27.0-35.0); MCV 90.3 fL (80-100); MPV 10.4 fL (7.6-11.3); Magnesium 1.9 mg/dL (1.8-2.4); Monocytes % 8.6 % (3.3-12.3); Potassium 3.6 mmol/L (3.5-5.1); RBC Red Blood Cell Count 2.35 M/uL (3.86-4.86)
[2018-06-08] MEDS: NACHLORIDE 0.45% 1,000 ML IV SCH ×2 (08:00→15:00)
--- NOTE | 2018-06-08 08:53 | P.PN ---
Subjective Date of Service: 06/08/18 Primary Care Provider: Out of [facility] Physician, GI-Dr. Cortes Chief Complaint: Lower GI bleeding Subjective: Doing well (Patient feeling better than yesterday. Rectal bleeding improved. Hemoglobin low. Patient to get transfused.) Physical Examination - Vital Signs Temperature: 97.5 F Blood Pressure: 113/57 Pulse: 84 Respirations: 15 Pulse Ox (%): 100 - Physical Exam General: Alert, In no apparent distress, Oriented x3, Cooperative HEENT: Atraumatic Neck: Supple Respiratory: Clear to auscultation bilaterally, Normal air movement Cardiovascular: Normal pulses, Regular rate/rhythm Gastrointestinal: Normal bowel sounds, Soft and benign, Non-distended, No tenderness, No masses, No rebound, No guarding Musculoskeletal: No erythema, No tenderness, No warmth Integumentary: No tenderness/swelling, No erythema, No warmth, No cyanosis Neurological: Normal speech, Normal strength at 5/5 x4 extr, Normal tone, Normal affect - Studies Medications List Reviewed: Yes Assessment & Plan - Problems (Diagnosis) (1) Hyperlipidemia Current Visit: Yes Status: Chronic Plan: Home medication reviewed. Will hold medication at this time. Qualifiers: Hyperlipidemia type: unspecified Qualified Code(s): E78.5 - Hyperlipidemia , unspecified (2) Status post colonoscopy with polypectomy Current Visit: Yes Status: Acute Plan: Patient had several polyps removed on Thursday. Hemoglobin has dropped. Patient requires transfusion. Will provide 1 unit of blood. Will recheck hemoglobin afterwards. Patient may require up to 2 units of blood. Care discussed with GI. Will provide clear liquid diet. No abdominal pain noted. Rectal bleeding has significantly improved. Patient may require colonoscopy prior to discharge if bleeding persists. Will continue monitor hemoglobin closely. (3) HTN (hypertension) Current Visit: Yes Status: Chronic Plan: Will hold blood pressure medication if systolic less than 120 Qualifiers: Hypertension type: essential hypertension Qualified Code(s): I10 - Essential (primary) hypertension (4) Lower GI bleed Onset Date: 06/07/18 Current Visit: Yes Status: Acute Plan: Secondary to recent polypectomy from colonoscopy. Patient to get transfused today. Will monitor and adjust closely. Patient may need up to 2 units of blood. Continue as above. (5) UTI (urinary tract infection) Current Visit: Yes Status: Suspected Plan: Suspect UTI. Will start Rocephin. Urine cultures obtained. Qualifiers: Urinary tract infection type: site unspecified Hematuria presence: without hematuria Qualified Code(s): N39.0 - Urinary tract infection, site not specified (6) Hypernatremia Current Visit: Yes Status: Acute Plan: IV fluids adjusted. Will monitor closely Discharge Plan: Home Plan to discharge in: Greater than 2 days Time Spent Managing Pts Care (In Minutes): 55
[2018-06-08] MEDS: HYDROCORTISONE 2.5% RECT CR PR SCH ×2 (09:00→21:00)
[2018-06-08] MEDS: CEFTRIAXONE/SWI 1gm 1 GM/10 ML SYR IV SCH (09:32)
[2018-06-08 13:43] LABS: Hematocrit 27.9 % (36.0-45.0)
--- NOTE | 2018-06-08 16:08 | PN ---
Date of Progress Note: 06/08/2018 ICU bed 6. A 67-year-old female, Dr. May. Problem List: 1.Post polypectomy bleeding. 2.Acute blood loss anemia, with hemoglobin of 7.5, hematocrit of 21 today. 3.The patient takes nonsteroidal anti-inflammatory medication, aspirin for anti-platelet agent. Subjective: Ms. Genao today states that she is feeling better after in ICU. she has been transfused with blood. No shortness of breath. No cough or expectoration. Her bowel movement has slowed down. She is mostly passing gas without any blood and when she passes anything, it is generally small amount of dark material as opposed to bright red blood or [facility] in the past. Denies any fever, chills. Denies any abdominal pain or discomfort. Denies any edvin nophagia or dysphagia. Objective: General: No acute distress noted. Appears to be slightly pale. Hemodynamic respiratory and profile within normal range. No tachycardia. No hypotension noted. HEENT: Atraumatic, normocephalic. Slight pallor. No icterus. Abdomen: Soft, nontender, nondistended. Accentuated bowel sounds in all quadrants. No hepatomegaly . No splenomegaly. Neurologic: Alert and oriented x3. Intact memory, mentation, and judgment. Diagnostic Data: As elaborated above. Plan And Recommendation: 1.Finally at this time, it appears that she probably has formed stable clot and has stopped bleeding . Therefore, we will continue to carefully watch her. 2.Continue on antibiotic. 3.Continue on periodic monitoring. 4.Post transfusion hemoglobin and hematocrit needs to be monitored. 5.I have discussed with her regarding the indications, contraindications, possible complications, al ternatives of emergency colonoscopy and further hemostatic measure. If needed, she is willing to do this. At this time, appears to have a formed stable clot, we will watch her very carefully, not to d o colonoscopy because prep may wash off the clot or procedure itself may wash off the clot and produc e rebleeding. 6.However, we will have no other option other than to emergency colonoscopy if she restarts bleeding for hemostatic procedure. She understands the process and willing to take the risk. Continue to ke ep her on just clear liquid diet and monitor her with periodic hemoglobin and hematocrit and transfus e as needed. 7.Overall condition is still guarded. NMM/MODL Voice ID: [id number] Report ID: [id number]
[2018-06-08 17:21] LABS: Hematocrit 26.8 % (36.0-45.0)
--- NOTE | 2018-06-08 21:39 | EKG ---
Test Date: 2018-06-08 Test Time: 01:31:42 Police Officer Booking: RT-O MEASUREMENT RESULTS: Intervals: Rate: 88 NC: 180 QRSD: 80 QT: 406 QTc: 491 [place]: P: 49 NC: 180 QRS: 38 T: 6 INTERPRETIVE STATEMENTS: Normal sinus rhythm T wave abnormality, consider inferior ischemia Prolonged QT Abnormal ECG Compared to ECG 06/06/2018 22:14:56 T-wave abnormality now present Possible ischemia now present Electronically Signed On 06-08-18 21:38:42 CDT by Yousif Waite
[2018-06-09] MEDS: PANTOPRAZOLE INJ 80 MG in NA CHLORIDE 0.9% 250 ML IV SCH ×5 (01:39→21:41)
[2018-06-09 05:10] LABS: Absolute Lymphocytes (CBC) 2.7 K/uL (0.7-4.9); Absolute Monocytes 0.5 K/uL (0.1-1.3); Absolute Neutrophil 3.7 K/uL (1.8-8.0); Basophils % 0.6 % (0-1.3); Eosinophils % 5.1 % (0-4.4); Hematocrit 25.2 % (36.0-45.0); Lymphocytes % 36.5 % (15.3-44.8); MCH 31.8 pg (27.0-35.0); MCV 89.8 fL (80-100); MPV 9.3 fL (7.6-11.3); Monocytes % 7.2 % (3.3-12.3)
[2018-06-09] MEDS: NACHLORIDE 0.45% 1,000 ML IV SCH ×3 (05:16→19:36)
[2018-06-09 05:31] LABS: Potassium 3.3 mmol/L (3.5-5.1)
[2018-06-09 05:50] VITALS: BMI 30.2
--- NOTE | 2018-06-09 08:48 | P.PN ---
Subjective Date of Service: 06/09/18 Primary Care Provider: Out of [facility] [address] Physician, GI-Dr. Cortes Chief Complaint: Lower GI bleeding Subjective: Improving (Patient improving. No significant nausea or vomiting noted. No abdominal pain noted. Bowel movement now brown and no melena or bleeding noted. Orthostatics checked this morning. Within normal range.) Physical Examination - Vital Signs Temperature: 97 F Blood Pressure: 128/60 Pulse: 77 Respirations: 16 Pulse Ox (%): 99 - Physical Exam General: Alert, In no apparent distress, Oriented x3, Cooperative HEENT: Atraumatic Neck: Supple Respiratory: Clear to auscultation bilaterally, Normal air movement Cardiovascular: Normal pulses, Regular rate/rhythm Gastrointestinal: Normal bowel sounds, Soft and benign, Non-distended, No tenderness, No masses, No rebound, No guarding Musculoskeletal: No erythema, No tenderness, No warmth Integumentary: No tenderness/swelling, No erythema, No warmth, No cyanosis Neurological: Normal speech, Normal strength at 5/5 x4 extr, Normal tone, Normal affect - Studies Medications List Reviewed: Yes Assessment & Plan - Problems (Diagnosis) (1) Hyperlipidemia Current Visit: Yes Status: Chronic Plan: Home medication reviewed. Will continue to hold medication at this time. Qualifiers: Hyperlipidemia type: unspecified Qualified Code(s): E78.5 - Hyperlipidemia , unspecified (2) Status post colonoscopy with polypectomy Current Visit: Yes Status: Acute Plan: Patient has received 2 units of blood. Hemoglobin stable at this time. Last hemoglobin 8.9. Bowel movement normal today without any melena or bleeding. Orthostatics within normal range. Will transfer the patient to the floor. Will have physical therapy ambulate. Anticipate no need for colonoscopy at this time. Will advance diet if okay with GI. Anticipate possible discharge as early as tomorrow. (3) HTN (hypertension) Current Visit: Yes Status: Chronic Plan: Will continue to hold blood pressure medication at this time. Will monitor blood count and blood pressure. Qualifiers: Hypertension type: essential hypertension Qualified Code(s): I10 - Essential (primary) hypertension (4) Lower GI bleed Onset Date: 06/07/18 Current Visit: Yes Status: Acute Plan: Secondary to recent polypectomy from colonoscopy. Patient has received 2 units of blood so far. Hemoglobin stable. Last bowel movement showed no bleeding or melena. No need for colonoscopy at this time. Will transfer the patient to the floor. Will monitor closely. Continue as above. (5) UTI (urinary tract infection) Current Visit: Yes Status: Suspected Plan: Urine culture positive for E coli. Will continue with Rocephin which is sensitive. Will transition to oral medication once she is able to take a soft diet. Qualifiers: Urinary tract infection type: site unspecified Hematuria presence: without hematuria Qualified Code(s): N39.0 - Urinary tract infection, site not specified (6) Hypernatremia Current Visit: Yes Status: Acute Plan: IV fluids adjusted. This has resolved. Will continue to monitor and adjust closely (7) Hypokalemia Current Visit: Yes Status: Acute Plan: Will continue to monitor and adjust appropriately. Replacement protocol in place. Discharge Plan: Home Plan to discharge in: 24 Hours Time Spent Managing Pts Care (In Minutes): 55
[2018-06-09] MEDS: CEFTRIAXONE/SWI 1gm 1 GM/10 ML SYR IV SCH (08:56)
[2018-06-09] MEDS: HYDROCORTISONE 2.5% RECT CR PR SCH ×2 (08:57→21:00)
[2018-06-09 14:13] LABS: Hematocrit 28.4 % (36.0-45.0)
[2018-06-09] MEDS ORDERED: MORPHINE 4 MG/ML SYR IV PRN (14:26)
--- NOTE | 2018-06-09 17:39 | PN ---
Date of Progress Note: 06/09/2018 Problem List: 1.Acute blood loss anemia. 2.Post polypectomy bleeding. 3.Now the patient remember that age 10, she had a tonsillectomy. She had severe bleeding and has to be given transfusion, therefore underlying coagulopathy needs to be ruled out. Subjective: Ms. Genao finally feeling much better. Her bowel movement is liquid. No blood is there . She is feeling better. Strength is better. No more weakness, dizziness. No hematemesis, melena. Objective: General: No acute distress noted. Hemodynamic and respiratory profile within normal ran ge. HEENT: Mild pallor. Abdomen: Soft, nontender, nondistended. Excellent bowel sounds present. Neurologic: Alert and oriented x3. Intact memory, mentation, and judgment. Diagnostic Data: Hemoglobin and hematocrit 8.9 and 25, that is stable. Impression: As above. Plan And Recommendation: Appears that she has formed stable clot. She is not bleeding further, ther efore I will advance her diet, ambulate. If she does well, hopefully by tomorrow, she could be disch arged home. Continue on antibiotic and once she is discharged continue on p.o. antibiotic at least for a week. Follow up in GI office in 1-2 weeks. CARY/LISHA Voice ID: [id number] Report ID: [id number]
[2018-06-09] MEDS: SMZ./TMP. 800/160 MG TABLET PO SCH (21:11)
[2018-06-10 05:46] LABS: BUN Blood Urea Nitrogen 6 mg/dL (7-18); Bicarbonate 27 mmol/L (21-32); Glucose Level 112 mg/dL (74-106); Magnesium 2.1 mg/dL (1.8-2.4); Sodium Level 145 mmol/L (136-145)
[2018-06-10 05:49] LABS: Absolute Lymphocytes (CBC) 2.2 K/uL (0.7-4.9); Absolute Monocytes 0.5 K/uL (0.1-1.3); Absolute Neutrophil 3.5 K/uL (1.8-8.0); Basophils % 0.9 % (0-1.3); Eosinophils % 4.2 % (0-4.4); Hematocrit 25.8 % (36.0-45.0); Lymphocytes % 32.9 % (15.3-44.8); MCH 31.3 pg (27.0-35.0); MCV 89.1 fL (80-100); MPV 9.8 fL (7.6-11.3); RBC Red Blood Cell Count 2.89 M/uL (3.86-4.86)
[2018-06-10] MEDS ORDERED: PANTOPRAZOLE INJ 80 MG in NA CHLORIDE 0.9% 250 ML IV SCH (09:00)
[2018-06-10] MEDS: HYDROCORTISONE 2.5% RECT CR PR SCH (09:00)
[2018-06-10 09:01] VITALS: O2SAT 94
[2018-06-10 09:10] VITALS: TEMP 97.3
[2018-06-10] MEDS: SMZ./TMP. 800/160 MG TABLET PO SCH (09:31)
[2018-06-10] MEDS ORDERED: POTASSIUM 25 MEQ EFFERV TAB PO ONE (10:50)
--- NOTE | 2018-06-10 10:50 | P.DS ---
Admission Date: 06/07/18 Discharge Date: 06/10/18 Primary Care Provider: Clare Knight NP([place]); GI-Dr. Cortes Disposition: ROUTINE DISCHARGE Discharge Condition: GOOD Reason for Admission: Lower GI bleeding Consultations: GI-Dr. Cortes Procedures: CT scan: FINDINGS: The evaluation of solid organs and vessels is limited secondary to the lack of contrast administration. Several small low-density hepatic lesions are nonspecific without IV contrast but probably spleen, pancreas, adrenals and left kidney are unremarkable. A 39 millimeter cystic mass extends off of the right kidney which has enlarged from the prior exam in which it measured 32 millimeters. Prior ultrasound demonstrates that it likely represents a cyst. A small umbilical hernia contains fat Diverticula stem from the colon without evidence of diverticulitis. The uterus and gallbladder have been removed. IMPRESSION: Diverticulosis without diverticulitis No acute abnormality is displayed - Problems (1) Hyperlipidemia Current Visit: Yes Status: Chronic Qualifiers: Hyperlipidemia type: unspecified Qualified Code(s): E78.5 - Hyperlipidemia , unspecified (2) Status post colonoscopy with polypectomy Current Visit: Yes Status: Acute (3) HTN (hypertension) Current Visit: Yes Status: Chronic Qualifiers: Hypertension type: essential hypertension Qualified Code(s): I10 - Essential (primary) hypertension (4) Lower GI bleed Onset Date: 06/07/18 Current Visit: Yes Status: Acute (5) UTI (urinary tract infection) Current Visit: Yes Status: Suspected Qualifiers: Urinary tract infection type: site unspecified Hematuria presence: without hematuria Qualified Code(s): N39.0 - Urinary tract infection, site not specified (6) Hypernatremia Current Visit: Yes Status: Acute (7) Hypokalemia Current Visit: Yes Status: Acute (8) Renal cyst, right Current Visit: Yes Status: Acute (9) Diverticulosis Onset Date: 06/07/18 Current Visit: Yes Status: Chronic Qualifiers: Diverticulosis site: unspecified location Diverticulosis bleeding: diverticulosis without bleeding Qualified Code(s): K57.90 - Diverticulosis of intestine, part unspecified, without perforation or abscess without bleeding (10) Pre-syncope Current Visit: Yes Status: Acute Brief History of Present Illness: 67-year-old female presented emergency room with rectal bleeding. Patient had polypectomy with colonoscopy a couple days prior. Patient had called her GI specialist who recommended that she go to the ER for evaluation. Patient was admitted due to rectal bleeding. Lower GI bleed was suspected. Hospital Course: During the course of her stay patient required 3 units of packed red blood cells. Patient was transferred to the ICU after a presyncopal episode. Patient received blood. Hemoglobin stabilized. Rectal bleeding resolved. Patient transitioned back to telemetry. No further bleeding noted. Patient was evaluated by GI. No intervention was required. Rectal bleeding likely related to recent polypectomy from colonoscopy. At discharge she will continue with iron 325 mg 1 pill twice daily. Recommendation is to recheck CBC in 1 week to monitor her progress. At discharge hemoglobin was 9.1. Recommendations for the patient follow up with GI in 1 week to monitor her progress and follow up this hospitalization. Patient has hypertension. Patient will continue with her medication-Norvasc 10 mg daily and hydrochlorothiazide 25 mg daily. Patient may need to hold her medication if blood pressure less than 120 systolic. She is to monitor her blood pressures daily. Recommendation is to maintain blood pressures less 150/ 80. Further adjustment can be done by her PCP. Patient has hyperlipidemia. Patient will continue with her medication-niacin 250 mg daily and Zocor 40 mg daily. Patient likely has GERD. Patient will continue with Protonix 40 mg 1 pill once daily. Recommendation is for the patient follow up with GI to further evaluate. Patient may require EGD in the future. CT scan revealed right kidney cyst. And diverticulosis without diverticulitis. Renal cyst appears to have enlarged from a prior evaluation. Recommendation to recheck ultrasound as an outpatient to further monitor. Patient was found to have a UTI. Urine culture positive for E coli. At discharge she will continue with Bactrim DS 1 pill twice daily for a total of 7 days. Recommendation is to recheck urine culture after that time to monitor resolution. UTI prevention will be provided. Patient takes aspirin 81 mg daily. This can be restarted in 1 week. Patient takes multiple vitamins and supplements. Those can be restarted. Vital Signs/Physical Exam: Temp Pulse Resp BP Pulse Ox 97.3 F 96 H 16 131/65 96 06/10/18 08:00 06/10/18 08:00 06/10/18 08:00 06/10/18 08:00 06/10/18 08:00 General: Alert, In no apparent distress, Oriented x3, Cooperative HEENT: Atraumatic Neck: Supple Respiratory: Clear to auscultation bilaterally, Normal air movement Cardiovascular: Normal pulses, Regular rate/rhythm Gastrointestinal: Normal bowel sounds, Soft and benign, Non-distended, No tenderness, No masses, No rebound, No guarding Musculoskeletal: No erythema, No tenderness, No warmth Integumentary: No tenderness/swelling, No erythema, No warmth, No cyanosis Neurological: Normal speech, Normal strength at 5/5 x4 extr, Normal tone, Normal affect Laboratory Data at Discharge: WBC 6.5 K/uL (4.3-10.9) 06/10/18 04:48 Hgb 9.1 g/dL (12.0-15.0) L 06/10/18 04:48 Hct 25.8 % (36.0-45.0) L 06/10/18 04:48 Plt Count 215 K/uL (152-406) 06/10/18 04:48 PT 13.2 SECONDS (9.5-12.5) H 06/06/18 22:50 INR 1.12 06/06/18 22:50 APTT 27.4 SECONDS (24.3-36.9) 06/06/18 22:50 Sodium 145 mmol/L (136-145) 06/10/18 04:48 Potassium 3.0 mmol/L (3.5-5.1) L 06/10/18 04:48 BUN 6 mg/dL (7-18) L 06/10/18 04:48 Creatinine 0.60 mg/dL (0.55-1.3) 06/10/18 04:48 Glucose 112 mg/dL (74-106) H 06/10/18 04:48 Magnesium 2.1 mg/dL (1.8-2.4) 06/10/18 04:48 Total Bilirubin 0.7 mg/dL (0.2-1.0) 06/06/18 22:15 AST 51 U/L (15-37) H 06/06/18 22:15 ALT 72 U/L (12-78) 06/06/18 22:15 Alkaline Phosphatase 78 U/L (45-117) 06/06/18 22:15 Lipase 170 U/L (73-393) 06/06/18 22:15 Home Medications: RX: Amlodipine [Norvasc*] 1 tab PO DAILY 06/07/18 RX: Antiarthritic Combination No.2 [Glucosamine-Chondroitin] 1,500 mg PO DAILY 06/07/18 RX: Ascorbate Calcium [Vitamin C] 500 mg PO DAILY 06/07/18 RX: Aspirin 81 mg PO DAILY 06/07/18 RX: Calcium Carbonate [Calcium] 1,200 mg PO DAILY MDD seecom 06/07/18 RX: Folic Acid 0.4 mg PO DAILY 06/07/18 RX: Niacin 250 mg PO DAILY 06/07/18 RX: Omeprazole 2 tab PO DAILY 06/07/18 RX: Psyllium Husk/Aspartame [Metamucil Fiber Singles Packet] 3.4 gm PO DAILY 08/17 RX: Simvastatin 40 mg PO DAILY 06/07/18 RX: Valacyclovir HCl [Valtrex] 500 mg PO DAILY PRN 06/07/18 RX: Vitamin E 200 unit PO DAILY 06/07/18 RX: hydroCHLOROthiazide [Hydrochlorothiazide] 25 mg PO DAILY 06/07/18 Ferrous Sulfate [Iron] 325 mg PO BID #60 tablet 06/10/18 Pantoprazole [Protonix Tab] 40 mg PO DAILY #30 tab 06/10/18 RX: Smz./Tmp. [Bactrim Ds 800 MG/160 MG*] 1 tab PO BID #10 tab 06/10/18 New Medications: Ferrous Sulfate [Iron] 325 mg PO BID #60 tablet Pantoprazole [Protonix Tab] 40 mg PO DAILY #30 tab RX: Smz./Tmp. [Bactrim Ds 800 MG/160 MG*] 1 tab PO BID #10 tab Patient Discharge Instructions: 1. Patient will need a follow up her PCP in 1 week to follow up this hospitalization. 2. Patient presented with rectal bleeding. Rectal bleeding secondary to recent polypectomy and colonoscopy. During the course of her stay patient required 3 units of packed red blood cells. Patient had presyncopal episode due to anemia. Hemoglobin stabilized at discharge. Rectal bleeding resolved. Patient was evaluated by GI. No intervention was required. Rectal bleeding likely related to recent polypectomy from colonoscopy. At discharge she will continue with iron 325 mg 1 pill twice daily. Recommendation is to recheck CBC in 1 week to monitor her progress. At discharge hemoglobin was 9.1. Recommendations for the patient follow up with GI in 1 week to monitor her progress and follow up this hospitalization. 3. Patient has hypertension. Patient will continue with her medication-Norvasc 10 mg daily and hydrochlorothiazide 25 mg daily. Patient may need to hold her medication if blood pressure less than 120 systolic. She is to monitor her blood pressures daily. Recommendation is to maintain blood pressures less 150/80. Further adjustment can be done by her PCP. 4. Patient has hyperlipidemia. Patient will continue with her medication-niacin 250 mg daily and Zocor 40 mg daily. 5. Patient likely has GERD. Patient will continue with Protonix 40 mg 1 pill once daily. Recommendation is for the patient follow up with GI to further evaluate. Patient may require EGD in the future. 6. CT scan revealed right kidney cyst and diverticulosis without diverticulitis. Renal cyst appears to have enlarged from a prior evaluation. Recommendation to recheck ultrasound as an outpatient to further monitor. 7. Patient was found to have a UTI. Urine culture positive for E coli. At discharge she will continue with Bactrim DS 1 pill twice daily for a total of 7 days. Recommendation is to recheck urine culture after that time to monitor resolution. UTI prevention will be provided. 8. Patient takes aspirin 81 mg daily. This can be restarted in 1 week. 9. Patient takes multiple vitamins and supplements. Those can be restarted. 10. Patient also had presyncopal episode likely from anemia. This has resolved. Fall precautions provided. Patient will need to monitor blood pressure closely. Continue with above blood pressure recommendations. Diet: GI soft then advance as tolerated Activity: Fall precautions Time spent managing pt's care (in minutes): 55
[2018-06-10 12:12] VITALS: BP 116/69
== END 2018-06-10 13:06 | disposition home or self-care (01) | DRG 920 ==
LOC: ER 21:27 → ERHOLD 23:10 → 2ND 23:29 → OBSVTOIN 06-07 13:09 → 3RD-ICU 06-07 16:05 → 2ND 06-09 12:00
PROVIDERS: ADMIT Hospitalist; ATTEND Family Medicine
PROC: 30233N1 Transfusion of Nonautologous Red Blood Cells into Peripheral Vein, Percutaneous Approach (ICD-10-PCS; principal; 2018-06-08)
DX: K91.840 Postprocedural hemorrhage of a digestive system organ or structure following a digestive system procedure (principal); E87.0 Hyperosmolality and hypernatremia; N39.0 Urinary tract infection, site not specified; D62 Acute posthemorrhagic anemia; Y83.6 Removal of other organ (partial) (total) as the cause of abnormal reaction of the patient, or of later complication, without mention of misadventure at the time of the procedure; Y92.009 Unspecified place in unspecified non-institutional (private) residence as the place of occurrence of the external cause; Z86.010 Personal history of colon polyps; E87.6 Hypokalemia; K57.30 Diverticulosis of large intestine without perforation or abscess without bleeding; E78.5 Hyperlipidemia, unspecified; I10 Essential (primary) hypertension; K21.9 Gastro-esophageal reflux disease without esophagitis; N28.1 Cyst of kidney, acquired; B96.20 Unspecified Escherichia coli [E. coli] as the cause of diseases classified elsewhere; Z79.82 Long term (current) use of aspirin; Z88.5 Allergy status to narcotic agent; Z91.041 Radiographic dye allergy status
CPT/HCPCS: 36415; 71045; 74176; 80048; 80076; 81003; 81015; 82550; 82553; 83690; 83735; 83880; 84484; 85014; 85018; 85025; 85610; 85730; 86850; 86900; 86901; 87077; 87086; 87088; 87186; 93005; 96365; 96375; 97163; 99285; C9113; G0378; J0696; J0744; J7030; P9016

== ENCOUNTER 2019-02-28 10:29 | Day surgery (SDC) | payer OTHER ==
[2019-02-23 14:31] LABS: Absolute Lymphocytes (CBC) 2.2 K/uL (0.7-4.9); Absolute Monocytes 0.8 K/uL (0.1-1.3); Absolute Neutrophil 4.4 K/uL (1.8-8.0); Eosinophils % 5.4 % (0-4.4); Hematocrit 47.3 % (36.0-45.0); Lymphocytes % 28.3 % (15.3-44.8); MPV 10.6 fL (7.6-11.3); Monocytes % 9.8 % (3.3-12.3); RBC Red Blood Cell Count 5.15 M/uL (3.86-4.86)
[2019-02-23 14:52] LABS: Albumin 4.6 g/dL (3.4-5.0); Bilirubin Total 0.8 mg/dL (0.2-1.0); Protein, Total 7.9 g/dL (6.4-8.2)
--- NOTE | 2019-02-23 20:20 | EKG ---
Test Date: 2019-02-23 Test Time: 13:17:09 [employer]mat Truck Driver: ESPERANZA MEASUREMENT RESULTS: Intervals: Rate: 78 ND: 184 QRSD: 86 QT: 408 QTc: 465 Jasper: P: 51 ND: 184 QRS: 22 T: 25 INTERPRETIVE STATEMENTS: Normal sinus rhythm Possible Left atrial enlargement Abnormal ECG Compared to ECG 06/08/2018 01:31:42 T abnormality id no longer present Electronically Signed On 02-23-19 20:19:52 CDT by Yousif Waite
[2019-02-28] MEDS ORDERED: CEFAZOLIN/SWI 1gm 1 GM/10 ML SYR ONE (11:12)
[2019-02-28] MEDS ORDERED: Ringers Lactate 1,000 ML IV ONE (11:12)
[2019-02-28] MEDS ORDERED: PROPOFOL 200 MG/20 ML VIAL IV ONE (11:32)
[2019-02-28] MEDS ORDERED: FENTANYL CITR 100 MCG/2 ML ONE (11:32)
[2019-02-28] MEDS ORDERED: LIDOCAINE 1% MPF 5 ML VIAL ONE (11:32)
[2019-02-28] MEDS ORDERED: MIDAZOLAM HCL 2 MG/2 ML INJ ONE (11:32)
--- NOTE | 2019-02-28 12:23 | P.BOP ---
Preoperative diagnosis: left knee pain with mechanical symptopms Postoperative diagnosis: same with MMtear, medial grade III cm with unstable flap Primary procedure: arthoscopy with MM debridement, chondroplasty (light) Estimated blood loss: 10 ccs Anesthesia: General Complications: None Transferred to: Recovery Room Condition: Good
[2019-02-28] MEDS ORDERED: KETOROLAC 30 MG/ML INJ ONE (12:27)
[2019-02-28] MEDS ORDERED: ONDANSETRON 4 MG/2 ML VIAL ONE (12:29)
[2019-02-28] MEDS: MEPERIDINE HCL 25 MG/0.5 ML ONE ×2 (12:54→12:59)
[2019-02-28] MEDS ORDERED: BUPIVACA 0.5%/EPI 0.0005%/PF 30 ML VIAL ONE (12:57)
[2019-02-28 13:24] VITALS: BP 115/60; TEMP 97.5; O2SAT 95
[2019-02-28] MEDS ORDERED: TRAMADOL HCL 50 MG TAB ONE (13:57)
--- NOTE | 2019-02-28 23:22 | OP ---
Date of Procedure: 02/28/2019 Surgeon: Trae Warren MD Preoperative Diagnosis: Left knee pain with mechanical symptoms, probable medial meniscal tear. Postoperative Diagnosis: 1. Displaceable medial meniscal tear on the left. 2. Displaceable chondral flap of the medial femoral condyle. 3. 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 4. 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 Procedure: 1. Arthroscopy of the left knee with debridement of medial meniscus. 2. light abrasive chondroplasty of the medial femoral condyle. Estimated Blood Loss: Less than 10 cc. Complications: No complications. Pathology: No pathology specimen sent. Indication For Operation: Ms. Genao is a 68-year-old female, unfortunately has trouble with mechanical symptoms of her left knee. This persisted despite medications and other conservative management. We discussed with her that arthroscopy is not good for degenerative lesions of articular cartilage. However, she does have an MRI which demonstrates probable meniscal tear and she does have mechanical symptoms. Therefore, we discussed risks, benefits, and alternatives to arthroscopy which included the possibility of infection, blood clot, and other well-known complications; however, in her patient population, definitely the fairly significant chance that this will not alleviate her symptoms because of arthritic change. She states she understands everything as presented and wished to proceed. Description Of Procedure: The patient was taken to the operating on room and placed in supine position. General anesthesia was obtained by the staff. Following this, a well-padded tourniquet was placed on the superior left thigh. However, it was not used throughout the case. Left lower extremity was then prepped and draped in usual sterile fashion. This was followed by placement of a superior medial arthroscopy portal, done atraumatically with one pass. Approximately 10 cc of rather normal-appearing synovial fluid was expressed, followed by placement of inferolateral arthroscopy portal. We placed the arthroscopic camera. Camera was then placed within the knee. The knee was then sequentially examined including the suprapatellar pouch, medial and lateral gutters, medial and lateral compartments, as well as the notch and patellofemoral joint. Pertinent findings included a tear of the medial meniscus , but still appeared to be displaced, although I have not probed yet. Also seen is grade 3 chondromalacia of the medial femoral condyle which did appear to have a displaceable flap. Also seen is grade 2-3 chondromalacia of the patellofemoral joint. Following this, a standard inferomedial arthroscopy portal was then placed under direct vision and a medial meniscus probe. It did have a displaceable segment and a shaver was then used to debride this back to a firm, hooked, stable, well-contoured base. Attention was then turned to the femoral condyle where this is debrided but only the unstable flap. No chondral tissue was removed other than that which was absolutely necessary to avoid the chondral flap. Following this, the knee was again examined in all the above areas with no further pathology seen which is amenable to arthroscopic intervention. The inferior arthroscopy portals were then shut and stapled. The superior medial arthroscopy portal was then used to place 30 cc of Marcaine with epinephrine. This was followed by closure of this portal. She was then placed in a well-padded sterile dressing and awakened and was taken to recovery room in good condition. There were no complications. /LISHA Voice ID: [id number] Report ID: [id number] ABDIEL
== END 2019-02-28 14:16 | disposition home or self-care (01) ==
LOC: OR 10:29
PROVIDERS: ATTEND Orthopaedic Surgery
PROC: 0SBD4ZZ Excision of Left Knee Joint, Percutaneous Endoscopic Approach (ICD-10-PCS; principal; 2019-02-28 11:30)
DX: M23.307 Other meniscus derangements, unspecified meniscus, left knee (principal); M94.29 Chondromalacia, multiple sites; I10 Essential (primary) hypertension; K21.9 Gastro-esophageal reflux disease without esophagitis
CPT/HCPCS: 29881; 93005; 85025; 36415; 80053; J2704; J2250; J3010; J2175; J0690; J2405

== ENCOUNTER 2024-05-25 10:08 | Emergency (ER) | payer OTHER ==
--- NOTE | 2024-05-25 11:26 | RAD REPORT ---
EXAM DESCRIPTION: CT - Thorax Wo Con - 05/25/2024 10:35 am CLINICAL HISTORY: Fall with left rib pain COMPARISON: None TECHNIQUE: Computed axial tomography of the chest was obtained. Contrast was not requested. All CT scans are performed using dose optimization technique as appropriate and may include automated exposure control or mA/KV adjustment according to patient size. FINDINGS: The evaluation of mediastinum, ratna and vessels is limited secondary to lack of IV contras t administration. A mediastinal hematoma is not seen. A pulmonary contusion is not noted A pleural effusion is not present. A pericardial effusion is not seen A displaced rib fracture not noted IMPRESSION: No acute traumatic injury involving the chest seen
--- NOTE | 2024-05-25 11:53 | EDPHYS ---
Physician Documentation [facility] Name: Joie Genao Age: 73 yrs Sex: Female : 1950 Arrival Date: 05/25/2024 Time: 10:08 Bed 10 Private MD: ED Physician Chris Thompson HPI: 05/25 10:25 This 73 yrs old Female presents to ER via Ambulatory with complaints of Fall Injury. rn 10:25 Details of fall: The patient fell from an upright position, while walking, Walking rn upstairs. Onset: The symptoms/episode began/occurred 10 day(s) ago. Associated injuries: The patient sustained injury to the chest, contusion, pain with movement, tenderness. Severity of symptoms: At their worst the symptoms were moderate, in the emergency department the symptoms are unchanged. The patient has not experienced similar symptoms in the past. Patient reports tripped while walking up stairs, hit left anterior chest and has had rib pain since then. Worse with movement and laughing and coughing. No shortness of breath. No abdominal pain no back pain. Did not hit head or have loss of consciousness. Does not take blood thinners. States pain is relieved with Tylenol. Historical: - Allergies: 10:23 Codeine; iw 10:23 Iodine; iw - PMHx: 10:23 High Cholesterol; Hypertension; iw - Immunization history:: Adult Immunizations up to date. - Infectious Disease History:: Denies. - Family history:: not pertinent. - Hospitalizations: : No recent hospitalization is reported. - Social history:: Smoking status: unknown. ROS: 10:25 Constitutional: Negative for fever, chills, and weight loss, Neck: Negative for injury, rn pain, and swelling, Cardiovascular: Positive for left chest pain Respiratory: Negative for shortness of breath, cough, wheezing Abdomen/GI: Negative for abdominal pain, nausea, vomiting, diarrhea, and constipation, MS/Extremity: Negative for injury and deformity, Skin: Negative for injury, rash, and discoloration, Neuro: Negative for headache, weakness, numbness, tingling, and seizure, Exam: 10:25 Constitutional: This is a well developed, well nourished patient who is awake, alert, rn and in no acute distress. Chest/axilla: Mild tenderness left anterior inferior ribs no crepitus. Cardiovascular: Regular rate and rhythm. No pulse deficits. Respiratory: No increased work of breathing, no retractions or nasal flaring. Abdomen/GI: Soft, nontender Neuro: Awake and alert, GCS 15 Vital Signs: 10:21 BP 140 / 80; Pulse 89; Resp 16; Temp 97.6; Pulse Ox 100% on R/A; iw 12:02 BP 141 / 75; Pulse 68; Resp 18; Pulse Ox 97% ; as6 MDM: 10:16 Patient medically screened. rn 11:51 Differential diagnosis: contusion, fracture. Data reviewed: vital signs, nurses notes, rn radiologic studies, CT scan, and as a result, I will discharge patient. Counseling: I had a detailed discussion with the patient and/or guardian regarding the historical points, exam findings, and any diagnostic results supporting the discharge/admit diagnosis, radiology results, the need for outpatient follow up, to return to the emergency department if symptoms worsen or persist or if there are any questions or concerns that arise at home. Special discussion: I discussed with the patient/guardian in detail that at this point there is no indication for admission to the hospital. It is understood, however, that if the symptoms persist or worsen the patient needs to return immediately for re-evaluation. ED course: CT chest negative for fracture or pneumothorax. I have personally reviewed all of the results, including but not limited to imaging deemed necessary to safely discharge this patient at this time. All results given to and printed out for patient. I personally went over all the results with the patient and answered all questions. Patient will follow-up with PCP and or specialist as discussed. Return precautions given and understood.. 05/25 10:25 Order name: CT Chest Wo Con; Complete Time: 11:27 rn Administered Medications: No medications were administered Disposition Summary: 05/25/24 11:52 Discharge Ordered Notes: Location: Home rn Problem: new rn Symptoms: have improved rn Condition: Stable rn Diagnosis - Contusion of left front wall of thorax rn Followup: rn - With: Private Physician - When: As needed - Reason: Recheck today's complaints, Re-evaluation by your physician Discharge Instructions: - Discharge Summary Sheet rn - Rib Contusion rn Forms: - Medication Reconciliation Form rn - Antibiotic learning specialist - Prescription Opioid Use rn - Patient Portal Instructions rn - Leadership Thank You Letter rn Signatures: Dispatcher [employer] Montserrat Brandt RN RN iw Nieto, Roman, MD MD rn Slawson, Ashby, RN RN as6 Corrections: (The following items were deleted from the chart) 10:26 10:25 Patient reports tripped while walking up stairs, hit left anterior chest and has rn had rib pain since then. Worse with movement and laughing and coughing. No shortness of breath. No abdominal pain no back pain. Did not hit head or have loss of consciousness. Does not take blood thinners.. rn
--- NOTE | 2024-05-25 11:53 | ER ---
Nurse's Notes [facility] Name: Joie Genao Age: 73 yrs Sex: Female : 1950 Arrival Date: 05/25/2024 Time: 10:08 Bed 10 Private MD: Diagnosis: Contusion of left front wall of thorax Presentation: 05/25 10:19 Chief complaint: Patient states: I tripped up some steps, landed on left side, my hands iw were bruised , happened 10 days ago, now left side of ribs are hurting more. 10:19 Acuity: MARK 4 iw 10:21 Coronavirus screen: At this time, the client does not indicate any symptoms associated iw with coronavirus-19. Ebola Screen: Patient negative for fever greater than or equal to 101.5 degrees Fahrenheit, and additional compatible Ebola Virus Disease symptoms Patient denies exposure to infectious person. Patient denies travel to an Ebola-affected area in the 21 days before illness onset. No symptoms or risks identified at this time. Risk Assessment: Do you want to hurt yourself or someone else? Patient reports no desire to harm self or others. 10:21 Method Of Arrival: Ambulatory iw 10:21 Initial Sepsis Screen: Does the patient meet any 2 criteria? No. Patient's initial iw sepsis screen is negative. Does the patient have a suspected source of infection? No. Patient's initial sepsis screen is negative. Onset of symptoms was May 15, 2024. Historical: - Allergies: 10:23 Codeine; iw 10:23 Iodine; iw - PMHx: 10:23 High Cholesterol; Hypertension; iw - Immunization history:: Adult Immunizations up to date. - Infectious Disease History:: Denies. - Family history:: not pertinent. - Hospitalizations: : No recent hospitalization is reported. - Social history:: Smoking status: unknown. Screenin:01 [facility] ED Fall Risk Assessment (Adult) History of falling in the last 3 months, as6 including since admission Yes- single mechanical fall (1 pt) Confusion or Disorientation No (0 pts) Intoxicated or Sedated No (0 pts) Impaired Gait No (0 pts) Mobility Assist Device Used No (0 pt) Altered Elimination No (0 pt) Score/Fall Risk Level 0 - 2 = Low Risk Oriented to surroundings, Maintained a safe environment, Educated pt \T\ family on fall prevention, incl call for assistance when getting out of bed, Assessed \T\ reinforced patient's understanding of fall precautions. Abuse screen: Denies threats or abuse. Denies injuries from another. Nutritional screening: No deficits noted. Tuberculosis screening: No symptoms or risk factors identified. Assessment: 12:00 General: Appears in no apparent distress. Behavior is calm, cooperative. Pain: as6 Complains of pain in left lateral posterior chest and left lateral anterior chest. Respiratory: Respiratory effort is even, unlabored, Respiratory pattern is regular, symmetrical. Vital Signs: 10:21 BP 140 / 80; Pulse 89; Resp 16; Temp 97.6; Pulse Ox 100% on R/A; iw 12:02 BP 141 / 75; Pulse 68; Resp 18; Pulse Ox 97% ; as6 ED Course: 10:13 Patient arrived in ED. mg5 10:16 Chris Thompson MD is Attending Physician. rn 10:21 Triage completed. iw 10:23 Montserrat Maya RN is Primary Nurse. iw 10:23 Arm band placed on. iw 10:35 CT Chest Wo Con In Process Unspecified. EDMS 12:01 Bed in low position. Call light in reach. Provided Education on: follow up. as6 12:01 No provider procedures requiring assistance completed. Patient did not have IV access as6 during this emergency room visit. Administered Medications: No medications were administered Medication: 12:01 VIS not applicable for this client. as6 Outcome: 11:52 Discharge ordered by . rn 12:01 Discharged to home ambulatory, as6 12:01 Condition: stable 12:01 Discharge instructions given to patient, Instructed on discharge instructions, follow up and referral plans. Demonstrated understanding of instructions, follow-up care, 12:02 Patient left the ED. as6 Signatures: Dispatcher [employer] Montserrat Brandt RN RN Chris Thompson MD MD rn Slawson, Ashby, RN RN Allegra Beyer mg5
[2024-05-25 12:23] VITALS: BP 141/75; TEMP 97.6; O2SAT 97
== END 2024-05-25 12:02 | disposition home or self-care (01) ==
LOC: ER 10:08
DX: S20.212A Contusion of left front wall of thorax, initial encounter (principal); Z88.5 Allergy status to narcotic agent; Z91.048 Other nonmedicinal substance allergy status
CPT/HCPCS: 71250; 99282